=== PATIENT | male | born 1985 ===

== ENCOUNTER 2018-07-06 22:12 | Emergency (ER) | payer SELFPAY ==
[2018-07-06 22:23] VITALS: TEMP 98.9
[2018-07-06 22:24] VITALS: BMI 29.0
[2018-07-06] MEDS ORDERED: Sodium Chloride 0.9% 1,000 ML IV STA (23:05)
--- NOTE | 2018-07-06 23:08 | ED PDOC ---
HPI: General Adult Time Seen by Provider: 07/06/18 23:06 Chief Complaint (Nursing): ENT Problem Chief Complaint (Provider): LEFT FACE PAIN/CP History Per: Patient (33 Y/O MALE NOTES INTERMITTENT CHEST PAIN X 2 WEEKS WITH MINIMAL CHEST PAIN TODAY. DENIES ANY COUGH/FEVER. NOTES HE HAS HAD SORE THROAT/ENLARGED LYMPH NODES AND STARTED PCN BOUGHT FROM [facility] . HAS TAKEN 7 DAYS PCN. PATIENT IS CONCERNED REGARDING LEFT SIDED FACIAL PAIN THAT RADIATES INVOLVING FACE. NO DENTAL PAIN.) Past Medical History Reviewed: Historical Data, Nursing Documentation, Vital Signs Vital Signs: Last Vital Signs Temp 98.9 F 07/06/18 22:22 Pulse 76 07/06/18 22:22 Resp 16 07/06/18 22:22 BP 152/86 H 07/06/18 22:22 Pulse Ox 100 07/06/18 22:22 Primary Care Provider: Non [facility] Provider, - Family History Family History: States: No Known Family Hx - Home Medications Home Medications: Ambulatory Orders Medication Instructions Recorded Penicillin VK [Penicillin VK Tab] 1 tab PO TID #30 tab 07/07/18 - Allergies Allergies/Adverse Reactions: Allergies Allergy/AdvReac Type Severity Reaction Status Date / Time No Known Allergies Allergy Verified 07/06/18 22:24 Review of Systems ROS Statement: Except As Marked, All Systems Reviewed And Found Negative Physical Exam - Reviewed Nursing Documentation Reviewed: Yes Vital Signs Reviewed: Yes - Physical Exam Appears: Positive for: Well, Non-toxic, No Acute Distress Head Exam: Positive for: ATRAUMATIC, NORMAL INSPECTION, NORMOCEPHALIC Skin: Positive for: Normal Color, Warm, DRY Eye Exam: Positive for: EOMI, Normal appearance, PERRL ENT: Positive for: Normal ENT Inspection Neck: Positive for: Normal, Painless ROM Cardiovascular/Chest: Positive for: Regular Rate, Rhythm Respiratory: Positive for: CNT, Normal Breath Sounds Gastrointestinal/Abdominal: Positive for: Normal Exam, Soft Back: Positive for: Normal Inspection Extremity: Positive for: Normal ROM Neurological/Psych: Positive for: Awake, Alert, Normal Tone - Laboratory Results Result Diagrams: 07/06/18 23:20 07/06/18 23:20 - ECG O2 Sat by Pulse Oximetry: 100 - Progress ED Course And Treament: cxr: no acute disease ekg nsr no ectopy no acute changes Disposition - Clinical Impression Clinical Impression: Pharyngitis - Patient ED Disposition Is Patient to be Admitted: No - Disposition Referrals: [facility] [Outside] Disposition: Routine/Home Disposition Time: 01:16 Condition: FAIR Prescriptions: Penicillin VK [Penicillin VK Tab] 1 tab PO TID #30 tab Instructions: Sore Throat in Adults, Chest Pain (DC) Print Language: ANGUILLAN
[2018-07-06 23:44] LABS: BASO % 0.3 % (0.0-2.0); EOS # 0.9 K/uL (0.0-0.7); EOS % 6.7 % (0.0-4.0); HEMOGLOBIN 15.3 g/dL (12.0-18.0); LYMPH # 5.8 K/uL (1.0-4.3); LYMPH % 40.5 % (20.0-40.0); MEAN CELL VOLUME 87.5 fl (80.0-94.0); MEAN CORPUSCULAR HEMOGLOBIN 29.5 pg (27.0-31.0); MEAN CORPUSCULAR HGB CONC 33.8 g/dL (33.0-37.0); MEAN PLATELET VOLUME 7.6 fl (7.2-11.7); MONO # 0.8 K/uL (0.0-0.8); MONO % 5.7 % (0.0-10.0); NEUT # 6.7 K/uL (1.8-7.0); NEUT % 46.8 % (50.0-75.0); NRBC % 0.1 % (0.0-0.0); RBC 5.17 Mil/uL (4.40-5.90); RED CELL DISTRIBUTION WIDTH 13.7 % (11.5-14.5); WHITE BLOOD COUNT 14.2 K/uL (4.8-10.8)
[2018-07-06 23:53] LABS: ALB/GLOB RATIO 1.2 (1.0-2.1); ALBUMIN 4.4 g/dL (3.5-5.0); ALT/SGPT 34 U/L (21-72); AST/SGOT 24 U/L (17-59); BLOOD UREA NITROGEN 19 mg/dl (9-20); CALCIUM 9.6 mg/dL (8.4-10.2); GFR NON-AFRICAN AMERICAN > 60
[2018-07-07 01:40] VITALS: BP 152/88; PULSE 66; RESP 17
[2018-07-07 03:10] VITALS: O2SAT 100
--- NOTE | 2018-07-07 07:53 | RAD ---
Date of service: 07/07/2018 HISTORY: chest pain COMPARISON: No prior. TECHNIQUE: 1 view obtained. FINDINGS: LUNGS: No consolidation. Symmetrical pulmonary venous congestion suggested PLEURA: No significant pleural effusion identified, no pneumothorax apparent. CARDIOVASCULAR: No aortic atherosclerotic calcification present. Borderline cardiomegaly mild pulmonary venous congestion suggested. OSSEOUS STRUCTURES: No significant abnormalities. VISUALIZED UPPER ABDOMEN: Normal. OTHER FINDINGS: None. IMPRESSION: Mild pulmonary venous congestion. No consolidation. Borderline cardiomegaly
--- NOTE | 2018-07-07 10:25 | CARD ---
APPROVED REPORT Date of service: 07/06/2018 EKG Measurement Heart [id number] <Conclusion> Normal sinus rhythm Normal ECG
== END 2018-07-07 01:39 | disposition home or self-care (01) ==
LOC: H.ER 22:12
DX: J02.9 Acute pharyngitis, unspecified (principal)
CPT/HCPCS: 71045; 80053; 83735; 84484; 85025; 93005; 96361; 96374; 99283; J2765; J7030